=== PATIENT | female | born 1995 | race Caucasian/White ===

== ENCOUNTER 2018-05-18 07:52 | Day surgery (SDC) | payer OTHER ==
[~2018-05-18 07:52] MED LIST: CEFAZOLIN 2 GM/50 ML (PMX) 50 ML IVPB; SOD CHLORIDE 0.9% 1,000 ML IV
[2018-05-18] MEDS ORDERED: FENTAnyl 50 MCG/ML VIAL ×2 (11:24→12:26)
[2018-05-18] MEDS ORDERED: ROCURONIUM 50 MG INJ (11:24)
[2018-05-18] MEDS ORDERED: LIDOCAINE 2% (SDV) 5 ML INJ (11:24)
[2018-05-18] MEDS ORDERED: PROPOFOL 20 ML (11:24)
[2018-05-18] MEDS ORDERED: MIDAZOLAM 1 MG/ML 2 ML INJ (11:24)
[2018-05-18] MEDS ORDERED: ROPIVACAINE 0.5 % 30 ML VIAL (11:25)
[2018-05-18] MEDS ORDERED: LABETALOL HCL 20MG INJ IV (11:30)
[2018-05-18] MEDS ORDERED: DIPHENHYDRAMINE 50 MG INJ IV (11:30)
[2018-05-18] MEDS ORDERED: EPHEDrine SULFATE 50 MG/5 ML SYG IV (11:30)
[2018-05-18] MEDS ORDERED: HYDROmorphONE 1 MG/5 ML IV SYRINGE IV ×3 (11:30)
[2018-05-18] MEDS ORDERED: FENTAnyl 50 MCG/ML VIAL IV (11:30)
[2018-05-18] MEDS ORDERED: OXYCODONE/ACETAMINOPHEN (5/325) TAB PO (11:30)
[2018-05-18] MEDS ORDERED: PROCHLORPERAZINE 10 MG INJ IV (11:30)
[2018-05-18] MEDS ORDERED: hydrALAzine 20 MG INJ IV (11:30)
[2018-05-18] MEDS ORDERED: CEFAZOLIN 1 GM INJ ×2 (11:51)
[2018-05-18] MEDS ORDERED: DEXAMETHASONE 4 MG/ML 5 ML INJ (11:51)
[2018-05-18] MEDS ORDERED: ONDANSETRON 4 MG INJ (11:51)
[2018-05-18] MEDS ORDERED: SUGAMMADEX SODIUM 200 MG/2 ML VIAL IV (12:17)
[2018-05-18] MEDS ORDERED: KETOROLAC 30 MG INJ (12:19)
[2018-05-18] MEDS: MEPERIDINE 25 MG INJ IV (12:37)
[2018-05-18] MEDS: ONDANSETRON 4 MG INJ IV (12:38)
[2018-05-18] MEDS: FENTAnyl 50 MCG/ML VIAL IV ×3 (12:41→12:54)
[2018-05-18] MEDS: HYDROCODONE/APAP (5/325) TAB PO (13:10)
== END 2018-05-18 14:35 | disposition home or self-care (01) ==
LOC: SDS 07:52
DX: K80.10 Calculus of gallbladder with chronic cholecystitis without obstruction (principal)
CPT/HCPCS: 47562; 84703; 88304